=== PATIENT | male | born 1945 | race Caucasian/White ===

== ENCOUNTER 2019-08-23 08:14 | Day surgery (SDC) | payer MEDICARE, OTHER ==
[~2019-08-23 08:14] MED LIST: PROPOFOL INJ 200 MG/20 ML VIAL IV ONE
--- NOTE | 2019-08-23 11:04 | Discharge Summary ---
Discharge Summary (SDC) - Discharge Final Diagnosis: History of colon cancer. Colon polyps. Date of Surgery: 08/23/19 Discharge Date: 08/23/19 Condition: Stable Treatment or Instructions: Discharge home. Diet as tolerated. Activity: As tolerated. Follow-up with [facility] in 7 to 10 days. Referrals: NATALIE GUERRA MD [Primary Care Provider] - Discharge Diet: As Tolerated Respiratory Treatments at Home: Deep Breathing/Coughing, Incentive Spirometer Discharge Activity: Balance Activity w/Rest Home Care Assistance: None Needed Report the Following to Your Physician Immediately: Shortness of Breath, Nausea, Vomiting, Fever over 101 Degrees, Unusual Bleeding, Redness
[2019-08-23] MEDS ORDERED: PROPOFOL INJ 200 MG/20 ML VIAL IV ONE (11:07)
--- NOTE | 2019-08-23 11:08 | Operative Report ---
Nonrecallable Operative Report DATE OF SURGERY: 08/23/19 PREOPERATIVE DIAGNOSIS: History of colon cancer. POSTOPERATIVE DIAGNOSIS: 1. No sign of cancer recurrence. 2. Small colon polyp in the proximal colon (suspect transverse colon). OPERATION: 1. Colonoscopy to the ileocolic anastomosis. 2. Hot snare polypectomy of small colon polyp in the area of the anastomosis (suspect transverse colon). SURGEON: NOEMÍ APODACA ANESTHESIA: LMAC TISSUE REMOVED OR ALTERED: Colon polyp. COMPLICATIONS: None apparent ESTIMATED BLOOD LOSS: Minimal PROCEDURE: Procedure in detail: After informed consent was obtained, the patient was brought to the operating room and laid in the left lateral decubitus position. The endoscope was passed up the rectum, sigmoid colon, descending colon, across the transverse colon, to the ileocolic anastomosis. The anastomosis was well- healed, without sign of cancer recurrence. The scope was then withdrawn, circumferentially noting the mucosa. The prep was fair. Multiple washings and suctionings were required in order to visualize the entirety of the mucosa. This was successful. The scope was withdrawn from the ileocolic anastomosis, through the transverse colon. There was a diminutive polyp found within the transverse colon. The polyp was removed in its entirety via hot snare polypectomy. The scope was then withdrawn through the remainder of the transverse colon, descending colon, and into the sigmoid colon. There were large scattered diverticula throughout the sigmoid colon. There is no sign of active diverticulitis. The scope was then withdrawn into the rectum. There were small, nonbleeding hemorrhoids in the rectum. The scope was then straightened, air was suctioned from the rectum, the scope was removed, and the procedure was concluded. All sponge, instrument, needle counts were correct x2. Condition: Stable.
[2019-08-23 11:43] VITALS: BP 115/40
== END 2019-08-23 11:32 | disposition home or self-care (01) ==
LOC: END 08:14 → EEVIPCON 09:30 → END 11:32
PROVIDERS: ATTEND Surgery
DX: Z12.11 Encounter for screening for malignant neoplasm of colon (principal); D12.6 Benign neoplasm of colon, unspecified; Z86.010 Personal history of colon polyps; E78.00 Pure hypercholesterolemia, unspecified; I10 Essential (primary) hypertension; Z87.891 Personal history of nicotine dependence; Z79.51 Long term (current) use of inhaled steroids; Z79.899 Other long term (current) drug therapy; J44.9 Chronic obstructive pulmonary disease, unspecified
CPT/HCPCS: 45385; 88305 ×2; 00811; J2704; 811